=== PATIENT | female | born 1965 | race Caucasian/White ===

== ENCOUNTER 2020-06-21 11:36 | Emergency (ER) | payer OTHER ==
[2020-06-21 11:47] VITALS: BMI 41.8
[2020-06-21 12:40] LABS: BASO % 0.7 % (0-2.0); EOS % 1.2 % (0-4.5); HEMATOCRIT 39.8 % (32.4-45.2); HEMOGLOBIN 13.3 GM/dL (10.7-15.3); LYMPH % 19.3 % (8-40); MCH 29.2 pg (25.7-33.7); MCHC 33.3 g/dl (32.0-36.0); MEAN CELL VOLUME 87.7 fl (80-96); MEAN PLT VOLUME 9.6 fl (7.5-11.1); MONO % 14.6 % (3.8-10.2); NEUT % 64.2 % (42.8-82.8); PLATELET COUNT 229 K/MM3 (134-434); RBC 4.54 M/mm3 (3.60-5.2); RDW 13.8 % (11.6-15.6); WHITE BLOOD COUNT 4.1 K/mm3 (4.0-10.0)
[2020-06-21] MEDS ORDERED: BAMLANIVIMAB 700 MG, ETESEVIMAB 1,400 MG in SODIUM CHLORIDE 250 ML IVPB ONE (13:00)
[2020-06-21 13:09] LABS: ALBUMIN 3.6 g/dl (3.4-5.0); BLOOD UREA NITROGEN 6.6 mg/dL (7-18); CALCIUM 8.8 mg/dL (8.5-10.1)
[2020-06-21 13:12] LABS: CREATININE 0.7 mg/dL (0.55-1.3)
[2020-06-21 13:14] LABS: BILIRUBIN,TOTAL 0.3 mg/dL (0.2-1)
[2020-06-21 15:35] VITALS: BP 121/74; PULSE 88; TEMP 99.3
== END 2020-06-21 15:39 | disposition home or self-care (01) ==
LOC: JER 11:36
DX: U07.1 COVID-19 (principal)
CPT/HCPCS: 36415; 80053; 85025; 99284-25; M0239; Q0239; Q0245